=== PATIENT | female | born 1935 | race Caucasian/White ===

== ENCOUNTER 2019-09-02 09:03 | Inpatient (IN) | payer MEDICARE ==
[2019-09-02] MEDS ORDERED: niCARdipine 20MG In NaCl 0 MG/0 ML BAG ONE ×2 (09:15→09:48)
--- NOTE | 2019-09-02 09:17 | CT ---
CT BRAIN NONCONTRAST: DATE: 09/02/2019 HISTORY: 83-year-old female with acute stroke: Severe aphasia and right upper extremity weakness. Dr. Wells verbally gave this report to Dr. Hall of the emergency department at 9:11 AM on 09/02/2019 COMPARISON: none FINDINGS: Subtle finding of slightly low attenuation causing loss of fletcher-white junction distinction at posteri or aspect of left insular cortex, and involving at least moderate portion of left parietal lobe, consistent with cytotoxic edema. No mass effect, midline shift, extra-axial fluid collection, obstructive hydrocephalus, or calvarial fracture. 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
[2019-09-02] MEDS ORDERED: niCARdipine 25 MG in Sodium Chloride 0.9% 250 ML 240 ML IVPB SCH (09:30)
--- NOTE | 2019-09-02 09:48 | CT ---
CT ANGIOGRAM NECK WITH CONTRAST CT ANGIOGRAM BRAIN WITH CONTRAST: DATE: 09/02/2019 HISTORY: 83-year-old female with acute left middle cerebral artery territory infarction. Dr. Wells gave telephone report to Dr. Hall of the emergency Department at 9:45 AM 09/02/2019: TECHNIQUE: After IV contrast injection, arterial bolus chasing technique scan performed from AP window to vertex of head. Coronal and sagittal 3-D MIP reconstructions. FINDINGS: Atherosclerosis, including calcified plaque, involving multiple major arteries, especially aortic arc h. Aortic arch: No aneurysm or high-grade stenosis. Brachiocephalic: Mild stenosis at origin. No high-grade stenosis. Right subclavian: No high-grade stenosis. Right common carotid: No significant stenosis. Right internal carotid: No high-grade stenosis. Left subclavian: No high-grade stenosis. Left common carotid: Mild stenosis at origin. No high-grade stenosis. Left internal carotid: No high-grade stenosis. Right vertebral: No high-grade stenosis. Intracranial segment is diminutive. Left vertebral: Dominant. No high-grade stenosis. Basilar: No high-grade stenosis. Bilateral speaker mounter: Patent. 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 Bilateral superior cerebellars: Proximally patent. Right carotid siphon: Heavy atherosclerotic calcification. No obvious severe stenosis, except at nunes tid terminus, where there is moderate focal stenosis.. Right MCA: No thrombosis or high-grade stenosis. Right TALIA: A1 segment developmentally absent. Right A2 segment supplied presumably by anterior commun icating artery. Left MCA: Filling defect occupying distal half of M1 segment. Contrast flow around the clot. At least one, and possibly more, of the proximal bifurcation branches of the left MCA are occluded and unopacified. IMPRESSION: Acute thrombus in M1 segment of left middle cerebral artery. Occlusion at origin of at least one or more of the branches of left middle cerebral artery.
[2019-09-02 09:50] LABS: #Eosinphils 0.1 thou/uL (0.0-0.7); #Monocytes 0.6 thou/uL (0.11-0.59); %Basophils 0.3 % (0.0-1.0); %Eosinophils 0.5 % (0.0-10.0); %Lymphocytes 8.9 % (21.0-51.0); %Monocytes 5.5 % (0.0-10.0); %Neutrophils 84.7 % (42.0-75.0); Hemoglobin 14.8 g/dL (12.0-16.0); Mean Corpuscular HGB CONC 33.5 g/dL (32.0-36.0); Mean Corpuscular Hemoglobin 34.8 pg (27.0-31.0); Platelet Count 177 thou/uL (130-400); RBC Distribution Width 12.5 % (11.5-14.5); Red Blood Cell (RBC) Count 4.23 mill/uL (4.20-5.40); White Blood Cell (WBC) Count 10.7 thou/uL (4.8-10.8)
[2019-09-02 09:57] LABS: INR-International Normal Ratio 1.2; PTT 35.6 SEC (22.9-36.1); Prothrombin Time 15.3 SEC (12.0-14.7)
[2019-09-02 10:00] LABS: ALT (SGPT) 13 U/L (8-55); AST (SGOT) 17 U/L (5-34); Albumin 3.7 g/dL (3.4-4.8); Alkaline Phosphatase 52 U/L (40-110); Anion Gap 15 mmol/L (10-20); BUN (Urea Nitrogen) 11 mg/dL (9.8-20.1); Bilirubin, Total 1.1 mg/dL (0.2-1.2); CK (CPK) 98 U/L (29-168); Calc. Creatinine Clearance 0 mL/min (70-130); Calcium 8.8 mg/dL (7.8-10.44); Carbon Dioxide 27 mmol/L (23-31); Chloride 95 mmol/L (98-107); Estimated GFR-MDRD 76; Globulin 2.3 g/dL (2.4-3.5); Glucose 135 mg/dL (83-110); Potassium 4.5 mmol/L (3.5-5.1); Sodium 132 mmol/L (136-145)
[2019-09-02 10:06] LABS: Bacteria/HPF 4+ HPF (None Seen); Bilirubin Negative (Negative); Blood, Urine Trace (Negative); Clarity Turbid (Clear); Glucose, Urine (Dipstick) Normal (Negative); Leukocyte 500 Leu/uL (Negative); Nitrite Negative (Negative); Protein, Urine (Dipstick) Negative (Neg-Trace); Squamous Epithelial None Seen HPF (0-3); Urobilinogen Normal mg/dL (Less than 2); WBC/HPF Greater than 50 HPF (0-3)
[2019-09-02] MEDS ORDERED: Metoprolol Tartrate 5 MG/5 ML VIAL ONE (10:15)
--- NOTE | 2019-09-02 10:28 | PDOC.FPRHP ---
- History of Present Illness Chief Complaint: Found Down History of Present Illness: Patient is an 83 y/o female who presents to the ED after being found down by her sister, whom she lives with, at home. Patient was aphasic during the evaluation, and much of the evaluation was completed with the aid of the patient's sister and [id number], whom were both present. Patient was last seen normal at 2200 on 09/01, and was subsequently found by her sister at 0730 on 09/02. Patient's sister denies finding blood, stool, urine, vomit or any obvious signs of trauma at the scene. The patient's sister felt that she was cold, and subsequently gave her multiple blankets before calling EMS. At that time, the patient was unable to speak, and could only move her left hand. The patient's sister denied any facial drooping. The patient has a history of falls , but this has never happened before. She has no history of seizures and her sister denied any recent fevers, chills, changes in vision, changes in hearing, CP, SOB, N/V/D. ED Course: While in the ED, the patient was found to be in A-Fib w/ RVR. She was subsequently started on a Cardizem ggt, which was soon DC'd. She was subsequently administered Metoprolol 5 mg and Lovenox 1mg/kg. CXR: NAF R. Ankle 3-View: Trimalleolar Fx CT Head (w/o Contrast): Evidence for acute Left MCA Infarct CTA Head/Neck: Acute Thrombus in M1 Segment of Left MCA UA: +Bacteria, +RBCs, +WBCs Trops: Negative x1 - Allergies/Adverse Reactions Allergies Allergy/AdvReac Type Severity Reaction Status Date / Time No Allergy Information Allergy Unverified 09/02/19 09:19 Available - Home Medications Medication Instructions Recorded Confirmed Type Dabigatran [Pradaxa] 150 mg PO BID 09/02/19 09/02/19 History Levothyroxine Sodium [Synthroid] 09/02/19 History Lisinopril 20 mg PO 09/02/19 History Metoprolol Tartrate [Lopressor] 100 mg PO BID 09/02/19 09/02/19 History Comments: Confirmed w/ Patient's pharmacy ([facility] - [address]) - History PMHx: A-Fib, HTN, Hypothyroidism, HTN PSHx: Cholecystectomy FHx: CVA, HTN, DM2 Social: EtOH x2 daily, does not abuse tobacco or drugs Code: Full Patient's Leedem-Mm-Rlu is MPOA - Review of Systems ROS unobtainable: due to mental status - Vital signs BP: [114/80] HR: [94] RR: [22] Tmax: [] Pox: [100]% on [Room Air] Wt: [] - Physical Exam Constitutional: NAD, well developed, other (Patient was non-compliant with much of the evaluation.) HEENT: normocephalic and atraumatic, PERRLA, EOMI, conjunctiva clear, no scleral icterus, grossly normal vision, grossly normal hearing, normal nasal mucosa, MMM, oropharynx clear, other (Right-sided Facial Droop) Neck: supple, trachea midline, no LAD, no thyromegaly Chest: no-tender to palpation, no lesions Heart: normal S1/S2, no murmurs/rubs/gallops, pulses present, no edema, other ( Irregularly Irregular Rhythm) Lungs: CTAB, no respiratory distress, good air movement, no rales/rhonchi, no wheezing, no retractions Abdomen: soft, non-tender, no masses/distention, no hernias Musculoskeletal: other (Patient's RLE was swollen - unable to discern TTP) Neurological: other (Difficult to assess fully, as patient was non-compliant with evaluation) Skin: no rash/lesions, no jaundice Heme/Lymphatic: no unusual bruising or bleeding, no purpura, no petechia, no LAD Psychiatric: other (Patient would not follow instructions and demonstrated moderate expressive aphasia.) FMR H&P: Results - Labs Result Diagrams: 09/02/19 09:38 09/02/19 09:38 Lab results: WBC 10.7 thou/uL (4.8-10.8) 09/02/19 09:38 Hgb 14.8 g/dL (12.0-16.0) 09/02/19 09:38 Hct 44.1 % (36.0-47.0) 09/02/19 09:38 MCV 104.0 fL (78.0-98.0) H 09/02/19 09:38 Plt Count 177 thou/uL (130-400) 09/02/19 09:38 Neutrophils % 84.7 % (42.0-75.0) H 09/02/19 09:38 Sodium 132 mmol/L (136-145) L 09/02/19 09:38 Potassium 4.5 mmol/L (3.5-5.1) 09/02/19 09:38 Chloride 95 mmol/L (98-107) L 09/02/19 09:38 Carbon Dioxide 27 mmol/L (23-31) 09/02/19 09:38 BUN 11 mg/dL (9.8-20.1) 09/02/19 09:38 Creatinine 0.73 mg/dL (0.6-1.1) 09/02/19 09:38 Glucose 135 mg/dL (83-110) H 09/02/19 09:38 Calcium 8.8 mg/dL (7.8-10.44) 09/02/19 09:38 Total Bilirubin 1.1 mg/dL (0.2-1.2) 09/02/19 09:38 AST 17 U/L (5-34) 09/02/19 09:38 ALT 13 U/L (8-55) 09/02/19 09:38 Alkaline Phosphatase 52 U/L (40-110) 09/02/19 09:38 Creatine Kinase 98 U/L (29-168) 09/02/19 09:38 Serum Total Protein 6.0 g/dL (6.0-8.3) 09/02/19 09:38 Albumin 3.7 g/dL (3.4-4.8) 09/02/19 09:38 Urine Ketones Negative mg/dL (Negative) 09/02/19 09:47 Urine Blood Trace (Negative) A 09/02/19 09:47 Urine Nitrite Negative (Negative) 09/02/19 09:47 Ur Leukocyte Esterase 500 Maia/uL (Negative) A 09/02/19 09:47 Urine RBC 4-6 HPF (0-3) A 09/02/19 09:47 Urine WBC Greater than 50 HPF (0-3) A 09/02/19 09:47 Ur Squamous Epith Cells None Seen HPF (0-3) 09/02/19 09:47 Urine Bacteria 4+ HPF (None Seen) A 09/02/19 09:47 - EKG Interpretation EKG: Reported by ED Attending Physician as A-Fib w/ RVR. - Radiology Interpretation Chest x-ray Status: report reviewed by me CT scan - head Status: report reviewed by me Other Status: report reviewed by me Additional comment: CTA Head/Neck FMR H&P: A/P - Problem List (1) CVA (cerebral vascular accident) Current Visit: Yes Status: Acute Code(s): I63.9 - CEREBRAL INFARCTION, UNSPECIFIED (2) HTN (hypertension) Current Visit: Yes Status: Acute Code(s): I10 - ESSENTIAL (PRIMARY) HYPERTENSION (3) Hypothyroidism Current Visit: Yes Status: Acute Code(s): E03.9 - HYPOTHYROIDISM, UNSPECIFIED (4) Atrial fibrillation Current Visit: Yes Status: Acute Code(s): I48.91 - UNSPECIFIED ATRIAL FIBRILLATION - Plan Patient is an 83 y/o female with a PMH of A-Fib and HTN who presents to the ED via EMS after being found down. 1. 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 - outside of tPA Window -Patient was reported to be aphasic with right-sided hemiparesis - appeared moderately improved during Resident Medicine Team evaluation -Trops: Negative x1 -Fasting Lipid Panel: Pending -MRI Brain: Pending -TTE: Pending -Neuro Consult: Pending -NeuroSurgery Consult: Per ED Attending Physician, NeuroSurgery was consulted from ED and indicated that there was no need for surgical intervention -Stroke Team Consult: Pending -Speech Therapy Consult: Pending -Will start high-intensity statin pending Speech Therapy recs -NIHSS: Unable to complete due to patient compliance -HASBLED: 5 -Will start Lovenox 1 mg/kg on 09/03 2. A-Fib w/ RVR, resolved -HR: 94 -Previously on Pradax - will hold at this time -Ensure rate control and continue to monitor 3. Trimalleolar Fx -Etiology of injury is unknown - confirmed via imaging -No evidence of neurovascular compromise on Physical Exam -Ortho Consult: Aware, will keep on service until cleared for surgical intervention 4. Possible UTI -UA: +Bacteria, +RBCs, +WBCs -UCx: Pending -Patient did not have a fever or an elevated WBC -Will treat pending UCx results 5. HTN -114/80 on 09/02 -Will allow for Permissive HTN -Currently holding home antihypertensive regimen pending Speech Therapy recs -Hydralazine, Labetalol PRN if BP > 220/110 6. Hypothyroidism -TSH: Pending -Currently holding home Levothyroxine regimen pending Speech Therapy recs PCP: [facility] Code: Full Diet: NPO Activity: Strict Bed Rest VTE PPx: s/p Lovenox 1 mg/kg in ED - Will Restart Home Anticoagulation if Patient Passes Swallow Study Dispo: Patient will be admitted to Stroke Floor for further work-up. Plan for labs and imaging modalities as per above, and notify Ortho when cleared for surgical repair of RLE. Expected LOS > 48H. FMR H&P: Upper Level - Plan Date/Time: 09/02/19 1028 I, Shyam Ruffin MD, have evaluated this patient and agree with findings/ plan as outlined by administration internship resident. Pertinent changes/additions are listed here. Left MCA CVA - CT brain and CTA brain positive - Not interventional candidate - Not TPA candidate - High intensity Statin - MRI ordered - Neuro and Stroke team consult - Allow for permissive HTN 220/110 A-fib - Rate control as needed - CHADSVASC irrelevant at this time due to acute CVA - Has-bled score high risk - Consider Lovenox Tri-malleolar fracture - Ortho consulted - Plan for surgical intervention once medically stable PCP: [facility] CODE STATUS: FULL CODE Disposition: Stable, will admit to inpatient services for further monitoring and evaluation. Addendum - Attending - Attending Attestation Date/Time: 09/02/19 3320 I personally evaluated the patient and discussed the management with Dr. Jackson. I agree with the History, Examination, Assessment and Plan documented above with any addition or exceptions noted below. The patient was found down this morning and ems was called. Pt has had a Left MCA stroke. She has movement in the left upper extremity spontaneously but that was it initially. She has started to move her right hand. She has been found to have a trimalleolar fracture on the right and this has been splinted. Ortho has seen her and recommends orif when stable. Will get echo. Pt has history of a.fib and is reportedly on pradaxa. Consult Pt/OT/ST. Consult neurology. Pt is awaiting speech eval. Culturing urine. Pt has a pacemake, so may not be able to have an MRI.
--- NOTE | 2019-09-02 10:34 | RAD ---
RADIOGRAPH CHEST 1 VIEW: DATE: 09/02/2019 HISTORY: 83-year-old female with acute stroke. Concern for aspiration. FINDINGS: There is no airspace density, pulmonary edema, or pneumothorax. The lateral costophrenic angles are n ot effaced. Left subclavian dual lead pacemaker. IMPRESSION: No acute pulmonary findings.
--- NOTE | 2019-09-02 10:44 | RAD ---
RIGHT ANKLE THREE VIEWS: HISTORY: Swelling following trauma. FINDINGS: There is diffuse soft tissue swelling of the lower leg and ankle. Minimally displaced oblique/spiral fracture of the distal fibula metadiaphysis. Minimally displaced transverse fracture through the medi al malleolus. Minimal irregularity of the posterior malleolus, evidence for fracture as well at this location. IMPRESSION: 1. Trimalleolar right ankle fracture. 2. Minimal soft tissue swelling. 3. Mild degenerative changes. 4. Minimal bony demineralization. POS: PATRICK
[2019-09-02] MEDS ORDERED: Enoxaparin Sodium 100 MG/ML SYRINGE ONE (10:52)
--- NOTE | 2019-09-02 12:35 | CON ---
DATE OF CONSULTATION: REQUESTING PHYSICIAN: Dr. Solomon Hall. BRIEF HISTORY OF PRESENT ILLNESS: Ms. Morgan is an 83-year-old lady who presents to the emergency department at [facility] after being "found down" by her sister whom she lives with at home. Upon arrival, the patient was aphasic with the patient's sister and [id number] at bedside. They report that at 10:00 p.m. on the evening prior to her event, she was in her normal state of health. It is not known when she may have had her stroke. The patient is not moving her right leg. She does not really have purposeful movement of the right arm, although can initiate some movement. The patient was also found to have ankle swelling and x-rays of the ankle revealed a trimalleolar ankle fracture and as such, Orthopedic consultation requested. PAST MEDICAL HISTORY: Remarkable for hypertension, atrial fibrillation, and hypothyroidism. PAST SURGICAL HISTORY: Includes pacemaker placement as well as cholecystectomy. MEDICATIONS: Per the emergency room record are remarkable for: 1. Levothyroxine. 2. Lisinopril. 3. Metoprolol. 4. Pradaxa. ALLERGIES: NONE KNOWN. SOCIAL HISTORY: Drinks alcohol on a daily basis. Denies tobacco or drug use. FAMILY HISTORY: Noncontributory for her ankle fracture. REVIEW OF SYSTEMS: By family's reports, no recent fevers, chills, or sweats. No chest pain or shortness of breath. PHYSICAL EXAMINATION: VITAL SIGNS: Temperature of 97.2, heart rate of 102, respiratory rate of 16, and a blood pressure of 108/82. HEENT: Right-sided facial weakness. HEART: Shows a regular rate and rhythm without murmur. LUNGS: Clear to auscultation bilaterally. Chest wall is nontender. ABDOMEN: Round with positive bowel sounds. EXTREMITIES: Remarkable for a right lower extremity that is in a short-leg fiberglass splint. She is unable to wiggle her toes. She has good capillary refill. She has swelling at the ankle, but skin is intact. X-RAY: Three-view ankle x-ray remarkable for trimalleolar ankle fracture with a nondisplaced posterior fragment and minimally displaced medial malleolus. The lateral malleolus just shows some slight displacement as well with no widening of the mortise. LABORATORY DATA: White count of 10.7, hematocrit of 44.1, and 177,000 platelets. She has an INR of 1.2. ASSESSMENT: An 83-year-old lady status post presumed fall sustaining a stroke as well as right trimalleolar ankle fracture. PLAN: Today, I discussed with the patient's sister and [id number] that given the minimal displacement, I believe that we can safely begin nonsurgical management of this ankle while she is further worked up for this stroke and begins treatment. I have recommended proceeding with open reduction and internal fixation if it becomes a reasonable risk. I have discussed with her medical provider that I would like them to contact me when she becomes a reasonable surgical candidate from the standpoint of recovery from her acute stroke symptoms. We will follow her intermittently while she is in the hospital. Job ID: [id number]
[2019-09-02] MEDS ORDERED: Iopamidol-370 76% 500 ML 1 ML ONE (14:56)
[2019-09-02] MEDS ORDERED: Aspirin 300 MG Suppository ONE (17:39)
[2019-09-02] MEDS ORDERED: Labetalol HCl 100 MG/20 ML VIAL SLOW IVP PRN (18:40)
[2019-09-02] MEDS ORDERED: hydrALAZINE 20 MG/ML VIAL SLOW IVP PRN (18:40)
[2019-09-02 18:49] VITALS: BMI 33.3
[2019-09-02] MEDS: Famotidine/PF 20 mg/2ml Vial SLOW IVP SCH (21:38)
[2019-09-02] MEDS ORDERED: Acetaminophen 325 MG TAB PO PRN (23:34)
[2019-09-02] MEDS ORDERED: Melatonin 3 MG TAB PO PRN (23:34)
[2019-09-03] MEDS: cefTRIAXone\\ROCEPHIN 1 GM in Sodium Chloride 0.9% 100 ML IVPB SCH (01:33)
[2019-09-03 05:07] LABS: #Basophils 0.1 thou/uL (0.0-0.2); #Eosinphils 0.1 thou/uL (0.0-0.7); #Lymphocytes 1.8 thou/uL (1.20-3.40); #Monocytes 0.7 thou/uL (0.11-0.59); #Neutrophils 5.4 thou/uL (1.40-6.50); %Eosinophils 0.7 % (0.0-10.0); %Lymphocytes 22.6 % (21.0-51.0); %Monocytes 8.5 % (0.0-10.0); %Neutrophils 67.2 % (42.0-75.0); Hemoglobin 13.8 g/dL (12.0-16.0); Mean Corpuscular Hemoglobin 34.3 pg (27.0-31.0); Mean Platelet Volume 9.4 fL (7.4-10.4); Platelet Count 171 thou/uL (130-400); RBC Distribution Width 12.7 % (11.5-14.5); Red Blood Cell (RBC) Count 4.04 mill/uL (4.20-5.40); White Blood Cell (WBC) Count 8.1 thou/uL (4.8-10.8)
--- NOTE | 2019-09-03 05:23 | PDOC.FM ---
- Subjective Subjective: Patient was sleeping at the time of evaluation and was not easily arousable. She did not appear in any acute distress, and there were no acute overnight events reported by Nursing staff. Per the Resident Night Team, the patient became tachycardic with a HR in the 130s to 150s, and was subsequently started on Digoxin. - Objective Vital Signs & Weight: Vital Signs (12 hours) Temp Pulse Resp BP Pulse Ox 09/02/19 23:20 98.4 F 126 H 20 183/116 H 94 L 09/02/19 20:34 97.5 F L 114 H 20 123/75 95 09/02/19 18:20 98.7 F 113 H 20 189/100 H 96 Weight Weight 99.3 kg Result Diagrams: 09/03/19 04:49 09/03/19 04:49 Phys Exam - Physical Examination Constitutional: NAD HEENT: oral pharynx no lesions Neck: supple Respiratory: no wheezing, no rales, no rhonchi, clear to auscultation bilateral Cardiovascular: no significant murmur, no rub Irregularly Irregular Gastrointestinal: soft, non-tender, no distention, positive bowel sounds Musculoskeletal: no edema, pulses present Neurological: non-focal Skin: no rash Dx/Plan (1) CVA (cerebral vascular accident) Code(s): I63.9 - CEREBRAL INFARCTION, UNSPECIFIED Status: Acute (2) HTN (hypertension) Code(s): I10 - ESSENTIAL (PRIMARY) HYPERTENSION Status: Chronic (3) Hypothyroidism Code(s): E03.9 - HYPOTHYROIDISM, UNSPECIFIED Status: Chronic (4) Atrial fibrillation Code(s): I48.91 - UNSPECIFIED ATRIAL FIBRILLATION Status: Chronic (5) Trimalleolar fracture of right ankle Code(s): S82.851A - DISPLACED TRIMALLEOLAR FRACTURE OF RIGHT LOWER LEG, INIT Status: Acute (6) UTI (urinary tract infection) Status: Acute - Plan Plan: Patient is an 83 y/o female with a PMH of A-Fib and HTN who presents to the ED via EMS after being found down. 1. 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 - outside of tPA Window -Patient was reported to be aphasic with right-sided hemiparesis - unable to adequately assess this AM -Trops: Negative x1 -Fasting Lipid Panel: Pending -MRI Brain: Held due to patient's pacemaker -TTE: Pending -Neuro Consult: Pending -NeuroSurgery Consult: Per ED Attending Physician, NeuroSurgery was consulted from ED and indicated that there was no need for surgical intervention -Stroke Team Consult: Pending -Speech Therapy Consult: Pending -Will start high-intensity statin if patient is cleared to swallow -NIHSS: Unable to complete due to patient compliance -HASBLED: 5 2. A-Fib w/ RVR, resolved -HR: 130s to 150s - started on Digoxin - will continue Q6H -Previously on Pradax - will hold at this time -Ensure rate control and continue to monitor -Will continue Lovenox 1 mg/kg BID 3. Trimalleolar Fx -Etiology of injury is unknown - confirmed via imaging -No evidence of neurovascular compromise on Physical Exam -Ortho: Consulted and aware, will keep on service until cleared for surgical intervention 4. Possible UTI -UA: +Bacteria, +RBCs, +WBCs -UCx: Pending -Patient did not have a fever or an elevated WBC -Ceftriaxone 1 g Q24H - will continue until UCx results 5. HTN -BP: 183/116 on 09/02 -Will allow for Permissive HTN for 24-48H -Currently holding home antihypertensive regimen pending Speech Therapy recs -Hydralazine, Labetalol PRN if BP > 220/110 6. Hypothyroidism -TSH: 0.57 -Will hold Levothyroxine regimen at this time PCP: [facility] Code: Full Diet: NPO Activity: Strict Bed Rest VTE PPx: Lovenox 1 mg/kg BID - Will Restart Home Anticoagulation if Patient Passes Swallow Study Dispo: Patient is currently admitted to Stroke Floor for further work-up. Manage A-Fib w/ RVR with Digoxin until patient is able to tolerate PO meds. Plan for labs and imaging modalities as per above, and notify Ortho when cleared for surgical repair of RLE. Neuro consulted, recs appreciated. Speech consulted, recs appreciated. Expected LOS > 48H. Addendum - Attending - Attending Attestation Date/Time: 09/03/19 0313 I personally evaluated the patient and discussed the management with Dr. Jackson. I agree with the History, Examination, Assessment and Plan documented above with any addition or exceptions noted below. Pt in a.fib with rvr this morning. Pt was loaded with digoxin as we are still allowing for permissive hypertension. Consulting cardiology, neurology, speech.
[2019-09-03 05:30] LABS: Anion Gap 13 mmol/L (10-20); BUN (Urea Nitrogen) 13 mg/dL (9.8-20.1); Calc. Creatinine Clearance 80 mL/min (70-130); Calcium 8.8 mg/dL (7.8-10.44); Carbon Dioxide 28 mmol/L (23-31); Cardiac Risk 3.2 (Less than 4.5); Chloride 99 mmol/L (98-107); Cholesterol 183 mg/dl (< 200 Desired); Estimated GFR-MDRD 65; Glucose 128 mg/dL (83-110); HDL Cholesterol 58 mg/dL (>60 Neg Risk); LDL Cholesterol, Calculated 101 mg/dL; Potassium 4.2 mmol/L (3.5-5.1); Sodium 136 mmol/L (136-145); Triglycerides 122 mg/dL (Less than 150)
[2019-09-03] MEDS ORDERED: Digoxin 0.5 MG/2 ML AMP SLOW IVP SCH (05:45)
[2019-09-03] MEDS: Famotidine/PF 20 mg/2ml Vial SLOW IVP SCH ×2 (08:31→20:27)
[2019-09-03] MEDS: Enoxaparin Sodium 100 MG/ML SYRINGE SC SCH ×2 (08:32→20:27)
[2019-09-03] MEDS ORDERED: Prevnar 13-Val Conj/PF 0.5 ML SYRINGE IM ONE (09:00)
[2019-09-03] MEDS: Lactated Ringer's 1,000 ML IV SCH ×2 (10:16→16:47)
[2019-09-03] MEDS: Scopolamine 1.5 mg/72 hour Patch TOP SCH (11:22)
[2019-09-03] MEDS: Digoxin 0.5 MG/2 ML AMP SLOW IVP SCH ×2 (11:24→18:05)
--- NOTE | 2019-09-03 13:16 | CON ---
DATE OF TELEMEDICINE CONSULTATION: 09/03/2019 Consultation via Telemedicine. CHIEF COMPLAINT: Stroke. HISTORY OF PRESENT ILLNESS: Medical history was obtained from sister and [id number]. The patient has no children. She is normally independent, sleeps on and off. Has been sleeping more lately during the daytime. She uses a cane, but lives by self and is self-caring. Family is helpful and looks after her. The patient went to bed a little after 10 p.m., and at 7:20 a.m., they found that she was lying beside the bed, unable to form any words. She also hurt her right ankle in the process, and she was brought to the hospital. At this time, she is unable to come talk, and she has severe right-sided weakness and CT angiogram was performed. On the CTA yesterday, she had 50% MCA ischemia. She has a large left middle cerebral artery ischemia, and it was felt it was not salvageable at that time. She had an acute thrombus in the M1 segment of the left MCA territory. PREVIOUS MEDICAL HISTORY: Positive for hypertension, atrial fibrillation, pacemaker. PAST SURGICAL HISTORY: Positive for pacemaker implantation, gallbladder resection, fracture of the wrist 10 years ago with a jacek placement. SOCIAL HISTORY: She is a nonsmoker. She drinks 2 glasses of wine daily. 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 FAMILY HISTORY: Father of mesothelioma at age 80. Mother in her 60s from atrial fibrillation. She had a stroke. Brother at 77 from atrial fibrillation and cancer and coronary artery disease. The patient has no children. The patient's sister is 74 and is diabetic. REVIEW OF SYSTEMS: Unable to obtain due to aphasia. PHYSICAL EXAMINATION: VITAL SIGNS: Blood pressure 198/91, temperature 99.4, pulse 100, respiratory rate 20. GENERAL APPEARANCE: Well-built, well-nourished lady, who seems comfortable in bed, but does not have any ability to speak. She tries to talk, but gets frustrated and discouraged. CHEST: Clear vesicular breathing. CARDIOVASCULAR: S1 and S2 heard. No murmurs. ABDOMEN: Soft. NEUROLOGICAL: Higher intellectual function, she is completely aphasic, and she does have some receptive aphasia and primarily expressive aphasia. She has a gaze preference to the left when at rest. Cranial nerve examination, normal extraocular movements. Pupils 2 mm, reactive to light. Face, facial asymmetry on the right side with facial droop. Tongue midline. Normal elevation of palate. Normal hearing. Motor bulk normal, tone normal on the left side, and tone is decreased on the right side. Strength appears to be intact on the left side. She did have some difficulty performing neurological examination. There was no pronator drift on the left side. On the right side, she had diffuse flaccid weakness. Deep tendon reflexes were 2+. Right knee and ankle could not be examined due to her recent ankle fracture with this incident. LABORATORY WORKUP: White count 8.1, hemoglobin 13.8, hematocrit 42, platelets 171. Chemistry; sodium 136, potassium 4.2, chloride 99, bicarb 28, BUN 13, creatinine 0.84, glucose 128. Cholesterol and lipid profile within normal limits. TSH 0.507. IMPRESSION AND PLAN: The patient is an 83-year-old lady, who fell and hurt her ankle during the fall and she was found to have severe aphasia and was unable to move her right side. The patient was brought in for evaluation. She has known risk factors with atrial fibrillation. She has a pacemaker. She is on Pradaxa at home. Her CT angio showed 50% ischemia in MCA territory. They felt she was not salvageable. She does have right M1 segment clot. Her examination shows right-sided dense hemiparesis with hypotonia, left side is normal. She does have a trimalleolar fracture on the right leg. She has pending Orthopedic consult as well. At this time, diagnosis is most consistent with acute stroke in the right and left MCA territory in the M1 segment resulting in dense right hemiparesis and aphasia. She may have some movement at the right lower extremity, which we were able to elicit and moving the right leg, likely secondary to pain. At this time, I do not think we can offer much other than adding aspirin to Pradaxa for additional stroke prevention strategy along with statin. The patient will need [facility] facility as well for further care. Primary team will decide about Orthopedic Surgery and intervention. Job ID: [id number] [facility]
[2019-09-03] MEDS ORDERED: Lorazepam 2 MG/ML VIAL SLOW IVP PRN (14:42)
[2019-09-03] MEDS ORDERED: Aspirin 81 mg Enteric Coated Tablet PO SCH (17:45)
[2019-09-03] MEDS: Aspirin 81 mg Enteric Coated Tablet PO SCH (18:03)
[2019-09-04] MEDS: cefTRIAXone\\ROCEPHIN 1 GM in Sodium Chloride 0.9% 100 ML IVPB SCH (00:21)
[2019-09-04] MEDS: Digoxin 0.5 MG/2 ML AMP SLOW IVP SCH ×2 (00:22→05:11)
[2019-09-04] MEDS: Lactated Ringer's 1,000 ML IV SCH ×4 (00:27→17:04)
[2019-09-04] MEDS ORDERED: hydrALAZINE 20 MG/ML VIAL SLOW IVP SCH (01:50)
--- NOTE | 2019-09-04 05:41 | PDOC.FM ---
- Subjective Subjective: Patient was not arousable to sternal rub or shouting at the time of evaluation. Per the Resident Night Team, she had an episode of HTN at 205/100 that was treated via Hydralazine 5 mg IV - no additional acute events were reported. - Objective Vital Signs & Weight: Vital Signs (12 hours) Temp Pulse Resp BP BP Pulse Ox 09/04/19 05:11 107 H 09/04/19 04:00 98.9 F 107 H 16 172/90 H 93 L 09/04/19 01:05 211/78 H 09/04/19 00:00 99.3 F 89 16 204/112 H 94 L 09/03/19 20:00 98.3 F 81 16 193/141 H 93 L 09/03/19 18:05 108 H Weight Weight 99.3 kg Result Diagrams: 09/03/19 04:49 09/03/19 04:49 Phys Exam - Physical Examination Constitutional: NAD HEENT: moist MMs, sclera anicteric, oral pharynx no lesions PERRL Neck: no JVD, supple Respiratory: no wheezing, no rales, no rhonchi, clear to auscultation bilateral Cardiovascular: no significant murmur, no rub Irregularly Irregular Gastrointestinal: soft, non-tender, no distention Musculoskeletal: no edema, pulses present RLE bandaded - mild erythema and edema of toes Patient did not comply with verbal instructions Deviation from normal: Patient did not respond to sternal rub or shouting - A& Ox0 Skin: no rash Dx/Plan (1) CVA (cerebral vascular accident) Code(s): I63.9 - CEREBRAL INFARCTION, UNSPECIFIED Status: Acute (2) HTN (hypertension) Code(s): I10 - ESSENTIAL (PRIMARY) HYPERTENSION Status: Chronic (3) Hypothyroidism Code(s): E03.9 - HYPOTHYROIDISM, UNSPECIFIED Status: Chronic (4) Atrial fibrillation Code(s): I48.91 - UNSPECIFIED ATRIAL FIBRILLATION Status: Chronic (5) Trimalleolar fracture of right ankle Code(s): S82.851A - DISPLACED TRIMALLEOLAR FRACTURE OF RIGHT LOWER LEG, INIT Status: Acute (6) UTI (urinary tract infection) Status: Acute - Plan Plan: Patient is an 83 y/o female with a PMH of A-Fib and HTN who presents to the ED via EMS after being found down. 1. 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 - outside of tPA Window -Patient was reported to be aphasic with right-sided hemiparesis - unable to adequately assess this AM -Trops: Negative x1 -Fasting Lipid Panel: WNL -MRI Brain: Held due to patient's pacemaker -TTE: EF (50-55%) -Neuro Consult: Add ASA to home Pradaxa regimen -NeuroSurgery Consult: Per ED Attending Physician, NeuroSurgery was consulted from ED and indicated that there was no need for surgical intervention -Stroke Team Consult: Pending -Speech Therapy Consult: Moderate Dysphagia - crush medications and utilized puree diet and nectar -Will add statin to medication regimen following clearance from Pharm -NIHSS: Unable to complete due to patient compliance -HASBLED: 5 2. A-Fib w/ RVR, resolved -HR: 130s to 150s - started on Digoxin - will continue Q6H -Previously on Pradax - will restart following clearance from Pharm -Ensure rate control and continue to monitor -Will continue Lovenox 1 mg/kg BID until transition to home medication regimen 3. Trimalleolar Fx -Etiology of injury is unknown - confirmed via imaging -No evidence of neurovascular compromise on Physical Exam -Ortho: Consulted and aware, will keep on service until cleared for surgical intervention -Fx is unstable - will require eventual surgical correction but optimal time for surgery is unclear currently 4. UTI -UA: +Bacteria, +RBCs, +WBCs -UCx: E. coli -Patient did not have a fever or an elevated WBC -Ceftriaxone 1 g Q24H 5. HTN -BP: 210/101 on 09/04 - s/p Hydralazine 5 mg IV -Will restart home antihypertensive regimen following clearance from Pharm -Hydralazine, Labetalol PRN if BP > 220/110 6. Hypothyroidism -TSH: 0.57 -Will hold Levothyroxine regimen at this time PCP: CC Code: Full Diet: Puree w/ [place] Thick Activity: Strict Bed Rest VTE PPx: Lovenox 1 mg/kg BID - Will Restart Home Anticoagulation Dispo: Patient is currently admitted to Stroke Floor for further work-up. Continue to manage A-Fib w/ RVR with Digoxin until patient is transitioned to home medication regimen - will confirm ability to crush meds prior to administration with Pharm. Neuro consulted, recs appreciated. Speech consulted, recs appreciated. Notify Ortho when cleared for surgical repair of RLE. Plan to discuss goals of care with family later today. Expected LOS > 48H. Addendum - Attending - Attending Attestation Date/Time: 09/04/19 0562 I personally evaluated the patient and discussed the management with Dr. Jackson. I agree with the History, Examination, Assessment and Plan documented above with any addition or exceptions noted below. Patient is a difficult case. Previously ambulatory but now s/p stroke with tri- mal fx. Timing of surgery concerning the r/b/a is a difficult decision. For now, begin controlling BP and will follow closely.
[2019-09-04] MEDS: Famotidine/PF 20 mg/2ml Vial SLOW IVP SCH ×2 (08:59→21:47)
[2019-09-04] MEDS: Enoxaparin Sodium 100 MG/ML SYRINGE SC SCH ×2 (08:59→21:46)
[2019-09-04] MEDS: Aspirin 81 mg Enteric Coated Tablet PO SCH (11:27)
[2019-09-04] MEDS: Scopolamine 1.5 mg/72 hour Patch TOP SCH (11:33)
[2019-09-04] MEDS ORDERED: hydrALAZINE 20 MG/ML VIAL SLOW IVP PRN (15:07)
--- NOTE | 2019-09-04 15:16 | PDOC.BPN ---
- Brief Progress Note On 09/04 at 1430, the Resident Medicine Team was notified that the patient was unusually sleepy and unable to keep her eyes open. The patient was evaluated, and was subsequently found to be difficult to arouse - she did however respond to sternal rub and painful stimuli, but did not open her eyes to shouting. A brief physical exam was conducted, revealing coarse breath sounds difficult to appreciate fully due to patient snoring, nontachycardic but irregularly irregular rhythm w/o new-onset murmurs, clicks, gallops or rubs, and no ABD guarding, rigidity or TTP. Upon examination of the patient's extremities, there was noted to be increased swelling and serous drainage to the patient's RLE that soaked through the patient's bandages and onto the patient's bedsheets. Orthopaedics was subsequently called and the patient's splint was removed, revealing diffuse edema, ecchymosis and small skin tears that were oozing minimally. The patient's RLE was subsequently re-splinted, and Wound Care was consulted. T(99.4) HR(78) BP(180/80) RR(20) O2Sat(95% on Room Air) POC Glucose(111) Stat CBC and BMP were ordered and the patient was given Hydralazine 10 mg IV. Nursing staff was notified that the patient's heel should be free floating off of the bed, per Ortho recs. Additionally, Nursing staff was notified that the patient was now outside of the window for Permissive HTN, and that the patient' s BP should goal should not be < 160/100 mmHg.
[2019-09-04 15:48] LABS: Hemoglobin 11.8 g/dL (12.0-16.0); Mean Corpuscular HGB CONC 33.5 g/dL (32.0-36.0); Mean Corpuscular Hemoglobin 34.9 pg (27.0-31.0); Mean Platelet Volume 8.7 fL (7.4-10.4); Platelet Count 138 thou/uL (130-400); RBC Distribution Width 12.4 % (11.5-14.5); Red Blood Cell (RBC) Count 3.38 mill/uL (4.20-5.40); White Blood Cell (WBC) Count 7.8 thou/uL (4.8-10.8)
[2019-09-04 16:07] LABS: Anion Gap 11 mmol/L (10-20); BUN (Urea Nitrogen) 10 mg/dL (9.8-20.1); Calc. Creatinine Clearance 103 mL/min (70-130); Carbon Dioxide 24 mmol/L (23-31); Chloride 103 mmol/L (98-107); Estimated GFR-MDRD 87; Glucose 103 mg/dL (83-110); Potassium 3.8 mmol/L (3.5-5.1); Sodium 134 mmol/L (136-145)
--- NOTE | 2019-09-04 20:27 | CT ---
HEAD CT WITHOUT CONTRAST: Comparison: 09-02-2019 History: Mental status change. FINDINGS: There are evolution changes compatible with a previously identified left MCA distribution infarct. Th ere is focal effacement. There is no significant midline shift. Basilar cisterns are patent. No paren chymal hemorrhage or extraaxial hematoma. Calvarium is intact. Hyperostosis frontalis interna is note d. Adequate aeration of the sinuses and mastoid air cells. IMPRESSION: Continued evolutionary changes of a right MCA distribution infarction. POS: PPP
[2019-09-04] MEDS: Metoprolol Tartrate 100 MG TAB PO SCH (21:47)
[2019-09-04] MEDS: Atorvastatin Calcium 40 MG TAB PO SCH (21:47)
[2019-09-05] MEDS: Labetalol HCl 100 MG/20 ML VIAL SLOW IVP PRN ×4 (00:21→15:45)
[2019-09-05] MEDS: cefTRIAXone\\ROCEPHIN 1 GM in Sodium Chloride 0.9% 100 ML IVPB SCH (00:21)
[2019-09-05] MEDS: Lactated Ringer's 1,000 ML IV SCH ×2 (02:02→10:12)
[2019-09-05 04:43] LABS: Hemoglobin 11.3 g/dL (12.0-16.0); Mean Corpuscular HGB CONC 33.9 g/dL (32.0-36.0); Mean Corpuscular Hemoglobin 35.2 pg (27.0-31.0); Platelet Count 141 thou/uL (130-400); RBC Distribution Width 12.3 % (11.5-14.5); White Blood Cell (WBC) Count 7.6 thou/uL (4.8-10.8)
[2019-09-05 05:01] LABS: Anion Gap 12 mmol/L (10-20); BUN (Urea Nitrogen) 9 mg/dL (9.8-20.1); Calc. Creatinine Clearance 101 mL/min (70-130); Carbon Dioxide 24 mmol/L (23-31); Chloride 102 mmol/L (98-107); Estimated GFR-MDRD 86; Glucose 97 mg/dL (83-110); Potassium 3.6 mmol/L (3.5-5.1); Sodium 134 mmol/L (136-145)
[2019-09-05] MEDS: Levothyroxine Sodium 125 MCG TAB PO SCH (05:14)
--- NOTE | 2019-09-05 05:22 | PDOC.FM ---
- Subjective Subjective: Patient was in bed with her sister and [id number] present during the evaluation. The patient continued to remain aphasic, occasionally moaned and expressed sounds when spoken to - she did not appear to be in any acute distress. No events were reported overnight by the Medicine Night Team or Nursing staff. - Objective Vital Signs & Weight: Vital Signs (12 hours) Temp Pulse Resp BP BP BP Pulse Ox 09/05/19 04:43 164/78 H 09/05/19 04:00 97.9 F 94 20 186/90 H 95 09/05/19 03:34 79 186/70 H 09/05/19 00:21 96 170/72 H 09/04/19 23:55 98.9 F 96 20 204/67 H 95 09/04/19 20:00 95 09/04/19 19:41 98.4 F 97 20 133/81 96 Weight Admit Weight 99.3 kg Weight 99.3 kg I&O: 09/03/19 09/04/19 09/05/19 06:59 06:59 06:59 Intake Total 1850 1680 Output Total 1300 400 Balance 550 1280 Result Diagrams: 09/05/19 04:26 09/05/19 04:26 Phys Exam - Physical Examination Constitutional: NAD HEENT: moist MMs, sclera anicteric, oral pharynx no lesions PERRL Heavy oropharyngeal secretions Neck: supple, full ROM Respiratory: no rales, no rhonchi Coarse breath sounds Cardiovascular: no significant murmur, no rub Non-tachycardic, irregularly irregular Gastrointestinal: soft, non-tender, no distention Musculoskeletal: no edema, pulses present RLE in splint w/o strike-through Patient did not purposefully move any extremities or respond to commands Skin: no rash Dx/Plan (1) CVA (cerebral vascular accident) Code(s): I63.9 - CEREBRAL INFARCTION, UNSPECIFIED Status: Acute (2) HTN (hypertension) Code(s): I10 - ESSENTIAL (PRIMARY) HYPERTENSION Status: Chronic (3) Hypothyroidism Code(s): E03.9 - HYPOTHYROIDISM, UNSPECIFIED Status: Chronic (4) Atrial fibrillation Code(s): I48.91 - UNSPECIFIED ATRIAL FIBRILLATION Status: Chronic (5) Trimalleolar fracture of right ankle Code(s): S82.851A - DISPLACED TRIMALLEOLAR FRACTURE OF RIGHT LOWER LEG, INIT Status: Acute (6) UTI (urinary tract infection) Status: Acute - Plan Plan: Patient is an 83 y/o female with a PMH of A-Fib and HTN who presents to the ED via EMS after being found down. 1. 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 confirmed on CT Head - outside of tPA Window -Trops: Negative x1 -Fasting Lipid Panel: WNL -MRI Brain: Held due to patient's pacemaker -TTE: EF (50-55%) -Neuro Consult: Add ASA to home Pradaxa regimen -NeuroSurgery Consult: Per ED Attending Physician, NeuroSurgery was consulted from ED and indicated that there was no need for surgical intervention -Speech Therapy Consult: Moderate Dysphagia - crush medications and utilized pureed diet and nectar -Will add statin to medication regimen following clearance from Pharm -NIHSS: Unable to complete due to patient compliance -HASBLED: 5 2. A-Fib w/ RVR, resolved -Rate-controlled for past 24H -Previously on Pradax - unable to crush and administer via pureed diet, per Pharm -Continue Lovenox 1 mg/kg BID -May have to switch back to IV medication administration if patient's mental status and ability to swallow do not improve 3. Trimalleolar Fx -Etiology of injury is unknown - confirmed via imaging -No evidence of neurovascular compromise on Physical Exam -Ortho: Consulted and aware, will keep on service until cleared for surgical intervention -Fx is unstable - will require eventual surgical correction but optimal time for surgery is unclear currently -Wound Care currently following for daily dressing changes 4. UTI -UA: +Bacteria, +RBCs, +WBCs -UCx: E. coli -Patient did not have a fever or an elevated WBC -Ceftriaxone 1 g Q24H for 5D 5. HTN -Outside of Permissive HTN window -Restarted home antihypertensive regimen -Hydralazine, Labetalol PRN if BP > 160/100 6. Hypothyroidism -TSH: 0.57 -Will hold Levothyroxine regimen at this time PCP: CC Code: Full Diet: Puree w/ [place] Thick Activity: Strict Bed Rest VTE PPx: Lovenox 1 mg/kg BID - Will Restart Home Anticoagulation Dispo: Patient is currently admitted to Stroke Floor for further work-up. Continue to manage A-Fib w/ RVR and UTI. Neuro consulted, recs appreciated. Speech consulted, recs appreciated. Notify Ortho when cleared for surgical repair of RLE. Continue to discuss goals of care with family. Expected LOS > 48H. Addendum - Attending - Attending Attestation Date/Time: 09/05/19 1210 I personally evaluated the patient and discussed the management with Dr. Jackson. I agree with the History, Examination, Assessment and Plan documented above with any addition or exceptions noted below. Patient cannot complete ROS d/t dysarthria/aphasia. She has a dense paralysis of her RUE and attempts to follows commands. Spoke with ortho and they want to defer surgery due to profound swelling. Will discuss and see if she can be placed and it be performed as an outpatient.
[2019-09-05] MEDS: Famotidine/PF 20 mg/2ml Vial SLOW IVP SCH (09:50)
[2019-09-05] MEDS: Enoxaparin Sodium 100 MG/ML SYRINGE SC SCH ×2 (09:50→20:35)
[2019-09-05] MEDS: Metoprolol Tartrate 100 MG TAB PO SCH ×2 (09:51→20:35)
[2019-09-05] MEDS: Lisinopril 20 MG TAB PO SCH (09:51)
[2019-09-05] MEDS: Aspirin 81 mg Enteric Coated Tablet PO SCH (09:52)
[2019-09-05] MEDS: Calcium Carbonate + Vit D 1 TAB PO SCH (10:10)
[2019-09-05] MEDS: Multivitamin W/ Minerals 1 TAB PO SCH (10:11)
[2019-09-05] MEDS: Scopolamine 1.5 mg/72 hour Patch TOP SCH (12:41)
[2019-09-05] MEDS: Atorvastatin Calcium 40 MG TAB PO SCH (20:35)
[2019-09-05] MEDS: Famotidine 20 MG TAB PO SCH (20:35)
--- NOTE | 2019-09-05 23:53 | CON ---
DATE OF CONSULTATION: 09/05/2019 Ms. Morgan was brought into the hospital this weekend after suffering fairly massive left MCA stroke. She has a history of atrial fibrillation. She has been placed on full-dose Lovenox after being evaluated by Dr. Ward. Her CT angiogram showed M1 segment occlusion on the left. Her echocardiogram showed a normal ejection fraction of 50% to 55%. Her proximal carotid arteries are clear. She has a fracture of her ankle and also some wounds. I was asked to give clearance for surgery. At this juncture, I think that the clearance should be done by Anesthesia as to whether it would be safe to perform general anesthesia under the circumstances. In regard to neurologic perspective, I would not see any significant risk associated with this. Overall, though given the massive nature of her stroke, it is unlikely that she will walk again. Her swallowing status has not been addressed at this point and there is a high likelihood that she will need PEG tube placement. Job ID: [id number]
[2019-09-06] MEDS: cefTRIAXone\\ROCEPHIN 1 GM in Sodium Chloride 0.9% 100 ML IVPB SCH (00:14)
[2019-09-06 04:48] LABS: Hemoglobin 11.3 g/dL (12.0-16.0); Mean Corpuscular HGB CONC 33.3 g/dL (32.0-36.0); Mean Corpuscular Hemoglobin 34.7 pg (27.0-31.0); Platelet Count 163 thou/uL (130-400); RBC Distribution Width 12.2 % (11.5-14.5); Red Blood Cell (RBC) Count 3.25 mill/uL (4.20-5.40); White Blood Cell (WBC) Count 8.1 thou/uL (4.8-10.8)
[2019-09-06 05:05] LABS: Anion Gap 9 mmol/L (10-20); BUN (Urea Nitrogen) 14 mg/dL (9.8-20.1); Calc. Creatinine Clearance 93 mL/min (70-130); Calcium 8.3 mg/dL (7.8-10.44); Carbon Dioxide 28 mmol/L (23-31); Chloride 102 mmol/L (98-107); Estimated GFR-MDRD 77; Glucose 99 mg/dL (83-110); Potassium 3.5 mmol/L (3.5-5.1); Sodium 135 mmol/L (136-145)
--- NOTE | 2019-09-06 05:16 | PDOC.FM ---
- Subjective Subjective: Patient was sleeping at the time of evaluation and was arousable to sternal rub and moderate shouting. She opened her eyes but continued to be unable to follow commands or speak meaningfully. - Objective Vital Signs & Weight: Vital Signs (12 hours) Temp Pulse Resp BP Pulse Ox 09/05/19 23:39 98.9 F 87 16 170/88 H 97 09/05/19 19:33 99.2 F 74 15 188/68 H 94 L 09/05/19 18:40 96 20 150/90 H Weight Admit Weight 99.3 kg Weight 99.3 kg I&O: 09/04/19 09/05/19 09/06/19 06:59 06:59 06:59 Intake Total 1850 1680 30 Output Total 1300 900 150 Balance 550 780 -120 Result Diagrams: 09/06/19 04:28 09/06/19 04:28 Phys Exam - Physical Examination Constitutional: NAD HEENT: PERRLA, moist MMs, sclera anicteric, oral pharynx no lesions Neck: supple Respiratory: no wheezing, no rales, no rhonchi Course breath sounds Cardiovascular: no significant murmur, no rub Irregularly irregular Gastrointestinal: soft, non-tender, no distention Musculoskeletal: no edema, pulses present Continues to move all extremities by RUE nonpurposefully Deviation from normal: No evolution of RLE pressure ulcer noted above or below bandages Dx/Plan (1) CVA (cerebral vascular accident) Code(s): I63.9 - CEREBRAL INFARCTION, UNSPECIFIED Status: Acute (2) HTN (hypertension) Code(s): I10 - ESSENTIAL (PRIMARY) HYPERTENSION Status: Chronic (3) Hypothyroidism Code(s): E03.9 - HYPOTHYROIDISM, UNSPECIFIED Status: Chronic (4) Atrial fibrillation Code(s): I48.91 - UNSPECIFIED ATRIAL FIBRILLATION Status: Chronic (5) Trimalleolar fracture of right ankle Code(s): S82.851A - DISPLACED TRIMALLEOLAR FRACTURE OF RIGHT LOWER LEG, INIT Status: Acute (6) UTI (urinary tract infection) Status: Acute - Plan Plan: Patient is an 83 y/o female with a PMH of A-Fib and HTN who presents to the ED via EMS after being found down. 1. 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 confirmed on CT Head - outside of tPA Window -Trops: Negative x1 -Fasting Lipid Panel: WNL -MRI Brain: Held due to patient's pacemaker -TTE: EF (50-55%) -Neuro Consult: Add ASA to medication regimen -NeuroSurgery Consult: Per ED Attending Physician, NeuroSurgery was consulted from ED and indicated that there was no need for surgical intervention -Speech Therapy Consult: Moderate Dysphagia - crush medications and utilized pureed diet and nectar -Will add statin to medication regimen following clearance from Pharm -NIHSS: Unable to complete due to patient compliance -HASBLED: 5 2. A-Fib w/ RVR, resolved -Rate-controlled for past 24H -Previously on Pradax - unable to crush and administer via pureed diet, per Pharm -Continue Lovenox 1 mg/kg BID -May have to switch back to IV medication administration if patient's mental status and ability to swallow do not improve 3. Trimalleolar Fx -Etiology of injury is unknown - confirmed via imaging -No evidence of neurovascular compromise on Physical Exam -Ortho: Consulted - recommended against surgery at this time due to gross edema and fracture ulcer formation -Neuro: Consulted - recommended obtaining clearance from Anesthesia prior to surgery, although benefit is unclear based on likely immobile status -Fx is unstable - will require eventual surgical correction but optimal time for surgery is unclear currently - may benefit from long-term splinting and Wound Care -Wound Care currently following for daily dressing changes 4. UTI -UA: +Bacteria, +RBCs, +WBCs -UCx: E. coli -Patient did not have a fever or an elevated WBC -Ceftriaxone 1 g Q24H for 5D 5. HTN -Outside of Permissive HTN window -Restarted home antihypertensive regimen -Hydralazine, Labetalol PRN if BP > 160/100 6. Hypothyroidism -TSH: 0.57 -Will hold Levothyroxine regimen at this time PCP: CC Code: Full Diet: Puree w/ [place] Thick Activity: Strict Bed Rest VTE PPx: Lovenox 1 mg/kg BID Dispo: Patient is currently admitted to Stroke Floor for further work-up. Continue to manage A-Fib w/ RVR and UTI. Neuro and Ortho consulted, recs appreciated. Speech consulted, recs appreciated. Awaiting Case Management recs on SNF placement. Continue to discuss goals of care with family, as patient's long-term prognosis is poor. Expected LOS > 48H. Addendum - Attending - Attending Attestation Date/Time: 09/06/19 2751 I personally evaluated the patient and discussed the management with Dr. Jackson. I agree with the History, Examination, Assessment and Plan documented above with any addition or exceptions noted below. Patient not interactive this morning. In light of ortho feeling non- intervention is best at this time, her, it seems, worse dysphagia, and the profound nature of the stroke in light of Dr. Salter's consultation I discussed with Kenzie's sister the consideration of palliative or hospice care, especially since they are averse to a PEG tube. I do not feel she will be able to eat enough calories or maintain hydration without one. After her sister in law returns, we will have another family meeting.
[2019-09-06] MEDS: Levothyroxine Sodium 125 MCG TAB PO SCH (06:03)
[2019-09-06] MEDS: Ketorolac Tromethamine 30 MG/ML VIAL IVP PRN ×2 (09:11→17:41)
[2019-09-06] MEDS: Enoxaparin Sodium 100 MG/ML SYRINGE SC SCH ×2 (09:12→20:20)
[2019-09-06] MEDS: Famotidine 20 MG TAB PO SCH ×2 (09:13→20:20)
[2019-09-06] MEDS: Calcium Carbonate + Vit D 1 TAB PO SCH (09:13)
[2019-09-06] MEDS: Multivitamin W/ Minerals 1 TAB PO SCH (09:14)
[2019-09-06] MEDS: Metoprolol Tartrate 100 MG TAB PO SCH ×2 (09:28→20:21)
[2019-09-06] MEDS: Lisinopril 20 MG TAB PO SCH (09:28)
[2019-09-06] MEDS: Aspirin 81 mg Enteric Coated Tablet PO SCH (09:28)
[2019-09-06] MEDS: Labetalol HCl 100 MG/20 ML VIAL SLOW IVP PRN ×3 (09:33→20:28)
[2019-09-06] MEDS: Scopolamine 1.5 mg/72 hour Patch TOP SCH (10:53)
--- NOTE | 2019-09-06 12:44 | PDOC.BPN ---
- Brief Progress Note On 09/06/2019 at 1230, the Resident Medicine Team was notified that the patient' s family wished to discuss the patient's long-term plan of care. During the conversation, the patient's family indicated that they would like to pursue Home Hospice - which was what the patient had previously stated that she desired if something catastrophic were to happen to her - and change the patient 's Code Status for the duration of her hospitalization. Nursing staff was notified, and orders were placed.
[2019-09-06] MEDS: Atorvastatin Calcium 40 MG TAB PO SCH (20:20)
[2019-09-07] MEDS: Labetalol HCl 100 MG/20 ML VIAL SLOW IVP PRN ×2 (00:09→12:30)
[2019-09-07] MEDS: cefTRIAXone\\ROCEPHIN 1 GM in Sodium Chloride 0.9% 100 ML IVPB SCH (00:11)
[2019-09-07] MEDS: Ketorolac Tromethamine 30 MG/ML VIAL IVP PRN ×2 (04:01→12:31)
[2019-09-07 04:58] LABS: Hemoglobin 11.3 g/dL (12.0-16.0); Mean Corpuscular HGB CONC 33.4 g/dL (32.0-36.0); Mean Platelet Volume 8.6 fL (7.4-10.4); Platelet Count 181 thou/uL (130-400); RBC Distribution Width 12.5 % (11.5-14.5); Red Blood Cell (RBC) Count 3.24 mill/uL (4.20-5.40); White Blood Cell (WBC) Count 6.5 thou/uL (4.8-10.8)
[2019-09-07 05:13] LABS: Anion Gap 11 mmol/L (10-20); BUN (Urea Nitrogen) 16 mg/dL (9.8-20.1); Calc. Creatinine Clearance 104 mL/min (70-130); Calcium 8.1 mg/dL (7.8-10.44); Carbon Dioxide 24 mmol/L (23-31); Chloride 103 mmol/L (98-107); Estimated GFR-MDRD 89; Glucose 87 mg/dL (83-110); Potassium 3.3 mmol/L (3.5-5.1); Sodium 135 mmol/L (136-145)
--- NOTE | 2019-09-07 05:17 | PDOC.FM ---
- Subjective Subjective: Patient was alert and resting in her hospital bed at the time of evaluation. She continues to remain aphasic and unable to follow commands. - Objective Vital Signs & Weight: Vital Signs (12 hours) Temp Pulse Resp BP BP Pulse Ox 09/07/19 05:10 91 176/82 H 09/07/19 03:29 98.2 F 86 18 198/85 H 94 L 09/07/19 00:59 95 170/84 H 09/06/19 23:26 97.6 F 84 18 197/84 H 96 09/06/19 19:42 98.9 F 89 16 180/81 H 94 L 09/06/19 17:41 98 09/06/19 17:39 186/74 H Weight Admit Weight 99.3 kg Weight 99.3 kg I&O: 09/05/19 09/06/19 09/07/19 06:59 06:59 06:59 Intake Total 1680 30 10 Output Total 900 850 650 Balance 780 -820 -640 Result Diagrams: 09/07/19 04:31 09/07/19 04:31 Phys Exam - Physical Examination Constitutional: NAD HEENT: moist MMs, sclera anicteric, oral pharynx no lesions PERRL Neck: supple Respiratory: no wheezing, no rales, no rhonchi, clear to auscultation bilateral Cardiovascular: no significant murmur, no rub Irregularly irregular Gastrointestinal: soft, non-tender, no distention, positive bowel sounds Musculoskeletal: pulses present RLE bandage in place - no strike-through noted Will not follow commands - continues to not move RUE Skin: no rash Dx/Plan (1) CVA (cerebral vascular accident) Code(s): I63.9 - CEREBRAL INFARCTION, UNSPECIFIED Status: Acute (2) HTN (hypertension) Code(s): I10 - ESSENTIAL (PRIMARY) HYPERTENSION Status: Chronic (3) Hypothyroidism Code(s): E03.9 - HYPOTHYROIDISM, UNSPECIFIED Status: Chronic (4) Atrial fibrillation Code(s): I48.91 - UNSPECIFIED ATRIAL FIBRILLATION Status: Chronic (5) Trimalleolar fracture of right ankle Code(s): S82.851A - DISPLACED TRIMALLEOLAR FRACTURE OF RIGHT LOWER LEG, INIT Status: Acute (6) UTI (urinary tract infection) Status: Acute - Plan Plan: Patient is an 83 y/o female with a PMH of A-Fib and HTN who presents to the ED via EMS after being found down. 1. 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 confirmed on CT Head - outside of tPA Window -Trops: Negative x1 -Fasting Lipid Panel: WNL -MRI Brain: Held due to patient's pacemaker -TTE: EF (50-55%) -Neuro Consult: Add ASA to medication regimen, long-term prognosis is poor -NeuroSurgery Consult: Per ED Attending Physician, NeuroSurgery was consulted from ED and indicated that there was no need for surgical intervention -Speech Therapy Consult: Moderate Dysphagia - aspiration risk, but can crush medications and utilize pureed diet and nectar -Statin added to medication regimen after clearance from Pharm -NIHSS: Unable to complete due to patient compliance -HASBLED: 5 2. A-Fib w/ RVR, resolved -Rate-controlled for past 24H -Previously on Pradax - unable to crush and administer via pureed diet, per Pharm -Continue Lovenox 1 mg/kg BID 3. Trimalleolar Fx -Etiology of injury is unknown - confirmed via imaging -No evidence of neurovascular compromise on Physical Exam in ED - now grossly ecchymotic w/ multiple fracture blisters -Ortho: Consulted - recommended against surgery at this time due to gross edema and fracture ulcer formation -Neuro: Consulted - recommended obtaining clearance from Anesthesia prior to surgery, although benefit is unclear based on poor prognosis and likely immobile status in the future -Fx is unstable - will utilize long-term splinting and Wound Care for now -Wound Care: Consulted, currently following for daily dressing changes 4. UTI -UA: +Bacteria, +RBCs, +WBCs -UCx: E. coli -Patient did not have a fever or an elevated WBC -Ceftriaxone 1 g Q24H for 5D 5. HTN -Outside of Permissive HTN window -Restarted home antihypertensive regimen -Hydralazine, Labetalol PRN if BP > 160/100 6. Hypothyroidism -TSH: 0.57 -Will hold Levothyroxine regimen at this time PCP: CC Code: Full Diet: Puree w/ [place] Thick Activity: Strict Bed Rest VTE PPx: Lovenox 1 mg/kg BID Dispo: Patient is currently admitted to Stroke Floor following a severe CVA that was complicated by #3 and #4. Per family requests, the patient will be placed on hospice ([facility]) and taken home under their care - as per her previously stated wishes. Her Code Status was changed on 09/06, and all seem amenable to the plan. Provide ongoing palliative care for the patient and emotional support for the patient's family until DC. Expected LOS < 24H Addendum - Attending - Attending Attestation Date/Time: 09/07/19 [id number] I personally evaluated the patient and discussed the management with Dr. Jackson. I agree with the History, Examination, Assessment and Plan documented above with any addition or exceptions noted below. Family, after hearing opinions of ortho/neuro felt hospice was most appropriate for Ms. Morgan. She is unable to swallow pills and they remain averse to any for of tube feeding. They understand the risks of no treatment of her comorbidities. They also understand the possibility for improvement and that hospice status can change. Likely d/c today.
[2019-09-07] MEDS: Levothyroxine Sodium 125 MCG TAB PO SCH (05:32)
[2019-09-07] MEDS: Lisinopril 20 MG TAB PO SCH (08:35)
[2019-09-07] MEDS: Calcium Carbonate + Vit D 1 TAB PO SCH (10:30)
[2019-09-07] MEDS: Aspirin 81 mg Enteric Coated Tablet PO SCH (10:30)
[2019-09-07] MEDS: Famotidine 20 MG TAB PO SCH (10:31)
[2019-09-07] MEDS: Metoprolol Tartrate 100 MG TAB PO SCH (10:32)
[2019-09-07] MEDS: Multivitamin W/ Minerals 1 TAB PO SCH (10:32)
[2019-09-07 11:42] VITALS: TEMP 98.4
[2019-09-07 12:27] VITALS: BP 168/72
[2019-09-07] MEDS: Enoxaparin Sodium 100 MG/ML SYRINGE SC SCH (13:34)
--- NOTE | 2019-09-08 12:03 | DIS ---
DATE OF ADMISSION: 09/02/2019 DATE OF DISCHARGE: 09/07/2019 RESIDENT: Franklyn Jackson MD. ADMITTING ATTENDING: Oxana Dutton MD. DISCHARGE ATTENDING: Nnamdi Nix MD. CONSULTATIONS: 1. Dr. Alek Salter, Neurology. 2. Dr. Misael Sim, Orthopedic Surgery. 3. Dr. Ed Guerra, Neurology. PROCEDURES: 1. CT brain, noncontrast, showing acute left middle cerebral artery infarction involving at least 25% or greater of the middle cerebral artery territory. 2. Chest x-ray showing no acute pulmonary findings. 3. Ankle x-ray showing right trimalleolar fracture. 4. Brain CT showing continued evolutionary changes of a right middle cerebral artery distribution infarct. PRIMARY DIAGNOSIS: Cerebrovascular accident. SECONDARY DIAGNOSES: 1. Right-sided trimalleolar fracture. 2. Atrial fibrillation with rapid ventricular response, resolved. 3. Urinary tract infection. 4. Hypertension. 5. Hypothyroidism. DISCHARGE MEDICATIONS: None. DISCONTINUED MEDICATIONS: 1. Aspirin 81 mg. 2. Atorvastatin 40 mg. 3. Calcium vitamin D 1 tab. 4. Ceftriaxone 1 g. 5. Lovenox 100 mg. 6. Famotidine 20 mg. 7. Hydralazine 10 mg. 8. Multivitamin 1 tab. 9. Ketorolac 15 mg. 10. Labetalol 20 mg. 11. Levothyroxine 125 mcg. 12. Lisinopril 20 mg. 13. Lorazepam 1 mg. 14. Melatonin 3 mg. 15. Metoprolol 100 mg. HISTORY OF PRESENT ILLNESS/HOSPITAL COURSE: The patient is an 83-year-old female who presents to the ED after being found down by her sister whom she lives with at home. The patient was aphasic during the evaluation. Much of the evaluation was completed with the aid of the patient's sister and [id number], both of whom were present at the time of evaluation. The patient was last seen normal at 2200 hours on 09/01, was subsequently found by her sister at 0730 hours on 09/02. The patient's sister denies finding blood, stool, urine, vomit, or any obvious signs of trauma at the scene. The patient's sister felt that she was cold and subsequently gave her multiple blankets before calling EMS. At that time, the patient was unable to speak and could only move her left hand. The patient's sister denied any facial drooping. The patient has a history of falls, this has never happened before. She has no history of seizures and her sister denies a recent history of fevers, chills, change in vision, changes in hearing, chest pain, shortness of breath, nausea, vomiting, or diarrhea. While in the ED, the patient was found to be in atrial fibrillation with RVR. She was subsequently started on a Cardizem drip, which was soon discontinued. She was subsequently administered 5 mg of metoprolol and Lovenox at 1 mcg/kg in order to achieve therapeutic dosing. Multiple imaging modalities were completed at that time. Those results are listed elsewhere in this document. The patient was subsequently transferred to the Stroke Floor where she was evaluated for a return to normal function; however, the patient remained aphasic and was unable to follow commands or demonstrate cognitive improvement from her baseline in the ED. The patient remained a high swallow risk, but the family desired to avoid utilizing a PEG tube or a nasogastric tube. The patient's blood pressure remained high throughout her hospitalization and required IV medications and she was unable to tolerate most oral medications. Additionally, the patient was started on IV antibiotics for a UTI that was found incidentally during her workup in the ED. Lastly, orthopedic surgery was consulted with regard to her trimalleolar fracture. However, due to gross edema and ecchymoses secondary most likely to the severity of the fracture and the patient being on therapeutic Lovenox secondary to her recent stroke and atrial fibrillation, the decision not to proceed with surgery was made. As the patient continued to decline clinically, the family decided to pursue palliative measures and as such a hospice consult was initiated. The family decided that the patient would return to her home in order to receive hospice care as she did not want to be kept alive, "as a vegetable" with a tube in her mouth or in her stomach. Prior to discharge on home hospice, the patient's vital signs revealed a temperature of 98.4, pulse 83, blood pressure of 168/72, respirations 17 per minute, oxygen saturation 97% on room air. LABORATORY DATA: Laboratory analysis reveal a white blood cell count of 6.5, hemoglobin 11.3, hematocrit 33.9, platelet count 181. Coagulation panel revealed a PT of 15.3, APTT of 35.6, INR of 1.2. Chem panel revealed a sodium level of 135, potassium 3.3, chloride 103, carbon dioxide 24, anion gap 11, BUN 16, creatinine 0.64, glucose 87. TSH was 0.57. Troponins were negative x1. DISPOSITION: Guarded. DISCHARGE INSTRUCTIONS: 1. Location: Home. 2. Diet: No restrictions, although patient would likely require a pureed diet with nectar thick under the assumption that she was a known aspiration risk. 3. Activity: Strict bedrest as the patient had an unstable fracture and was not able to ambulate unassisted. 4. Followup: The patient will not require followup as she was discharged with home hospice. 5. Her prognosis is extremely poor based on the severity of her cerebrovascular accident and the additional comorbid conditions that she presented with such as her trimalleolar fracture, urinary tract infection and inability to regain her previous level of function during her hospitalization. Job ID: [id number]
== END 2019-09-07 17:22 | disposition hospice, home (50) | DRG 64 ==
LOC: ERS 09:03 → ERHOLD 10:31 → 2SE 18:06
PROVIDERS: ADMIT Family Medicine; ATTEND Family Medicine
PROC: B020ZZZ Computerized Tomography (CT Scan) of Brain (ICD-10-PCS; principal; 2019-09-02)
DX: I63.512 Cerebral infarction due to unspecified occlusion or stenosis of left middle cerebral artery (principal); R40.2342 Coma scale, best motor response, flexion withdrawal, at arrival to emergency department; R40.2222 Coma scale, best verbal response, incomprehensible words, at arrival to emergency department; N39.0 Urinary tract infection, site not specified; G81.91 Hemiplegia, unspecified affecting right dominant side; I10 Essential (primary) hypertension; Z66 Do not resuscitate; I48.91 Unspecified atrial fibrillation; R47.01 Aphasia; S82.851A Displaced trimalleolar fracture of right lower leg, initial encounter for closed fracture; E03.9 Hypothyroidism, unspecified; R29.724 NIHSS score 24; R40.2142 Coma scale, eyes open, spontaneous, at arrival to emergency department; Z95.0 Presence of cardiac pacemaker; Z90.49 Acquired absence of other specified parts of digestive tract; Z79.899 Other long term (current) drug therapy; Z79.890 Hormone replacement therapy; W19.XXXA Unspecified fall, initial encounter; R13.10 Dysphagia, unspecified
CPT/HCPCS: 0042T; 29515; 36415; 36416; 51702; 70450; 70496; 70498; 71045; 80048; 80053; 80061; 81003; 81015; 82550; 84443; 84484; 85025; 85027; 85610; 85730; 87077; 87086; 87186; 93005; 93306; 96372; 96374; J0360; J0696; J1160; J1650; J1885; J2060; J3490; J7050; Q9967; S0028